=== PATIENT | male | born 1980 | race Caucasian/White ===

== ENCOUNTER 2023-04-04 09:08 | Outpatient (CLI) | payer BC ==
[2023-04-04] MEDS ORDERED: Iopamidol 370 76% 100 ML VIAL ONE (10:42)
[2023-04-04] MEDS ORDERED: Magnevist 469MG/ML 20 ML VIAL ONE (10:50)
== END 2023-04-04 09:09 | disposition home or self-care (01) ==
LOC: CSHCT 09:08
PROVIDERS: ATTEND Internal Medicine Hematology & Oncology
DX: I27.82 Chronic pulmonary embolism (principal); M54.6 Pain in thoracic spine; G89.29 Other chronic pain
CPT/HCPCS: 71275; 72157; A9579; Q9967

== ENCOUNTER 2024-09-16 09:46 | Day surgery (SDC) | payer BC ==
[2024-09-15 14:22] VITALS: BMI 27.8
[2024-09-16 11:13] LABS: #Basophils Less than 0.03 10x3/uL (0.0-0.2); #Eosinophils 0.35 10x3/uL (0.0-0.5); #Monocytes 0.55 10x3/uL (0.0-1.1); #Neutrophils 2.29 10x3/uL (1.5-8.4); %Basophils 0.4 % (0.0-2.0); %Eosinophils 6.4 % (0.0-6.0); %Lymphocytes 41.1 % (18.0-47.0); %Monocytes 10.1 % (0.0-10.0); %Neutrophils 41.8 % (40.0-75.0); Hematocrit 42.8 % (38.8-50.0); Hemoglobin 14.1 g/dL (13.5-17.5); Mean Corpuscular Hemoglobin 29.8 pg (27.0-33.0); Mean Corpuscular Volume 90.5 fL (81.2-95.1); Platelet Count 334 10x3/uL (150-450); Red Blood Cell (RBC) Count 4.73 10x6/uL (4.32-5.72); White Blood Cell (WBC) Count 5.47 10x3/uL (3.5-10.5)
[2024-09-16] MEDS ORDERED: Oxymetazoline HCl 0.05% (15 ML) ONE (11:30)
[2024-09-16] MEDS ORDERED: AFRIN NASAL MIST 15 ML BOT ONE ×2 (11:31→16:12)
[2024-09-16] MEDS ORDERED: PROPOFOL 20 ML ONE (13:49)
[2024-09-16] MEDS ORDERED: Ondansetron PF 4 MG/2 ML Vial ONE ×3 (13:49→18:16)
[2024-09-16] MEDS ORDERED: Rocuronium Bromide 10 MG/ML (10ML VIAL) ONE ×2 (13:49→15:53)
[2024-09-16] MEDS ORDERED: PROPOFOL 40 ML ONE (15:53)
[2024-09-16] MEDS ORDERED: SUGAMMADEX SODIUM 200 MG/2 ML VIAL ONE ×3 (15:53→16:45)
[2024-09-16] MEDS ORDERED: Lidocaine 1% PF 5 ML VIAL ONE (15:53)
[2024-09-16] MEDS ORDERED: Lidocaine 1% w/Epinephrine 1:200K 30 ML VIAL ONE (16:10)
[2024-09-16] MEDS ORDERED: HYDROcodone/Acetaminophen 5/325 mg Tablet ONE (18:48)
== END 2024-09-16 19:30 | disposition home or self-care (01) ==
LOC: CSHSDC 09:46
PROVIDERS: ATTEND Specialist
DX: J34.2 Deviated nasal septum (principal); J34.3 Hypertrophy of nasal turbinates; J32.0 Chronic maxillary sinusitis; J32.1 Chronic frontal sinusitis; J32.2 Chronic ethmoidal sinusitis; G44.009 Cluster headache syndrome, unspecified, not intractable; R42 Dizziness and giddiness; I10 Essential (primary) hypertension; E78.5 Hyperlipidemia, unspecified; Z79.899 Other long term (current) drug therapy
CPT/HCPCS: 85025; 93005; 93010; J0169; J1010; J1100; J2250; J2405; J2704; J3010